=== PATIENT | female | born 1970 | race Caucasian/White ===

== ENCOUNTER 2017-02-05 12:36 | Emergency (ER) | payer MEDICAID, OTHER ==
[~2017-02-05] VITALS: Ht 162.6 cm; Wt 72.6 kg
[2017-02-05] MEDS ORDERED: MVI in SODIUM CHLORIDE 0.9% 1,010 ML IV ONE (12:52)
[2017-02-05 12:54] VITALS: BP 103/59
[2017-02-05] MEDS ORDERED: THIAMINE HCL 100 MG/ML 2ML VIAL IV ONE (13:00)
[2017-02-05] MEDS ORDERED: MAGNESIUM SULFATE 1GM/100ML 100 ML IV SCH (13:00)
== END 2017-02-05 13:31 | disposition left against medical advice (07) ==
LOC: EDBD 12:36 → ER 12:36
DX: F10.129 Alcohol abuse with intoxication, unspecified (principal); R11.2 Nausea with vomiting, unspecified; F17.210 Nicotine dependence, cigarettes, uncomplicated; Z59.0 Homelessness

== ENCOUNTER 2017-02-25 23:18 | Emergency (ER) | payer OTHER ==
[~2017-02-25] VITALS: Ht 175.3 cm; Wt 83.9 kg
[2017-02-26 00:05] LABS: Eosinophils # (auto) 0.1 uL; Eosinophils % (auto) 0.8 % (0.0-7.0)
[2017-02-26 00:07] LABS: Basophils # (auto) 0.1 uL; Basophils % (auto) 0.9 % (0.0-2.0); Hematocrit 43.7 % (36.0-46.0); Lymphocytes # (auto) 1.9 uL; Lymphocytes % (auto) 25.6 % (10.0-50.0); Mean Corpuscular Hemoglobin 35.2 pg (28.0-32.0); Mean Corpuscular Hgb Conc. 34.3 g/dL (32.0-36.0); Mean Corpuscular Volume 102.7 fL (80.0-100.0); Monocytes # (auto) 0.8 uL; Monocytes % (auto) 10.7 % (0.0-12.0); Neutrophils # (auto) 4.6 uL; Platelet Count (auto) 201 10^3/uL (140-450); Red Blood Cells 4.26 10^6/uL (4.0-5.20); Red Cell Distribution Width 15.4 % (11.8-14.3); White Blood Cell 7.3 10^3/uL (4.4-10.8)
[2017-02-26 00:17] LABS: Alanine Aminotransferase 29 U/L (13-56); Albumin 3.5 g/dL (3.4-5.0); Anion Gap 10 (5-15); Aspartate Aminotransferase 28 U/L (15-37); BUN/Creatinine Ratio 12.1; Blood Urea Nitrogen 8 mg/dL (7-18); Calcium 8.9 mg/dL (8.5-10.1); Carbon Dioxide 25 mmol/L (21-32); Chloride 101 mmol/L (98-107); GFR African American 123 mL/min; GFR Non-African American 102 mL/min; Glucose 83 mg/dL (74-106); Potassium 3.8 mmol/L (3.5-5.1); Sodium 136 mmol/L (136-145)
[2017-02-26 00:23] LABS: Alkaline Phosphatase 50 U/L (45-117); Bilirubin, Total 0.9 mg/dL (0.2-1.0); Total Protein 7.1 g/dL (6.4-8.2)
[2017-02-26 00:33] LABS: INR 0.94 (0.9-1.15); Partial Thromboplastin Time 27.3 sec (22.64-33.71); Prothrombin Time 10.2 sec (9.37-12.3)
[2017-02-26 04:57] LABS: Urine Bacteria FEW /hpf (None Seen); Urine Blood 3+ /uL (Negative); Urine Mucus FEW (None Seen); Urine Specific Gravity 1.031 (1.001-1.035); Urine WBC 52 /hpf (0 - 5)
[2017-02-26 05:11] LABS: Alcohol, Urine < 3.0 mg/dL (0-5); Amphetamine Screen, Urine POSITIVE (NEGATIVE); Barbiturate Scree,Urine NEGATIVE (NEGATIVE); Benzodiazephine Screen, Urine NEGATIVE (NEGATIVE); Cannabinoid Screen, Urine NEGATIVE (NEGATIVE); Cocaine Screen, Urine NEGATIVE (NEGATIVE); Opiate Scree,Urine NEGATIVE (NEGATIVE); Phencyclidine Screen, Urine NEGATIVE (NEGATIVE)
[2017-02-26] MEDS ORDERED: ACETAMINOPHEN 325 MG TAB PO ONE (05:30)
[2017-02-26] MEDS ORDERED: cefTRIAXone 1GM/50ML D5W 50 ML IV ONE (06:45)
[2017-02-26 07:20] VITALS: BP 125/81
== END 2017-02-26 08:01 | disposition home or self-care (01) ==
LOC: EDBD 23:18 → ER 23:21
DX: N39.0 Urinary tract infection, site not specified (principal); F15.10 Other stimulant abuse, uncomplicated; J44.9 Chronic obstructive pulmonary disease, unspecified; I10 Essential (primary) hypertension; E78.5 Hyperlipidemia, unspecified; F17.210 Nicotine dependence, cigarettes, uncomplicated; Z59.0 Homelessness; Z88.0 Allergy status to penicillin
CPT/HCPCS: 36415; 71010; 74176; 80053; 80307; 81001; 83735; 83880; 84443; 84484; 84702; 85025; 85379; 85610; 85730; 96365; 99285; J0696

== ENCOUNTER 2017-02-26 20:57 | Emergency (ER) | payer OTHER ==
[~2017-02-26] VITALS: Ht 175.3 cm; Wt 81.6 kg
[2017-02-27 10:07] VITALS: BP 104/69
== END 2017-02-27 10:22 | disposition home or self-care (01) ==
LOC: ER 20:57
DX: N39.0 Urinary tract infection, site not specified (principal); J44.9 Chronic obstructive pulmonary disease, unspecified; I10 Essential (primary) hypertension; E78.5 Hyperlipidemia, unspecified; F17.210 Nicotine dependence, cigarettes, uncomplicated; Z87.11 Personal history of peptic ulcer disease; Z88.0 Allergy status to penicillin
CPT/HCPCS: 93005

== ENCOUNTER 2018-10-28 17:25 | Emergency (ER) | payer MEDICAID, OTHER ==
[~2018-10-28] VITALS: Ht 175.3 cm; Wt 76.7 kg
[2018-10-28 17:30] VITALS: BP 142/73
[2018-10-28] MEDS ORDERED: cefTRIAXone SOD 1,000 MG VL IM ONE (17:45)
[2018-10-28] MEDS ORDERED: methylPREDNISolone SOD SUCC 125 MG/2 ML VL IM ONE (17:45)
== END 2018-10-28 18:33 | disposition home or self-care (01) ==
LOC: ER 17:25
DX: J03.90 Acute tonsillitis, unspecified (principal); J04.0 Acute laryngitis; L98.9 Disorder of the skin and subcutaneous tissue, unspecified; J44.9 Chronic obstructive pulmonary disease, unspecified; K21.9 Gastro-esophageal reflux disease without esophagitis; E78.5 Hyperlipidemia, unspecified; I10 Essential (primary) hypertension; Z76.0 Encounter for issue of repeat prescription; Z88.0 Allergy status to penicillin
CPT/HCPCS: 96372; 99283; J0696; J2930